=== PATIENT | male | born 1965 | race Caucasian/White ===

== ENCOUNTER 2018-06-18 07:49 | Day surgery (SDC) | payer MEDICARE, OTHER ==
[~2018-06-18] VITALS: Ht 162.6 cm; Wt 77.7 kg
[~2018-06-18 07:49] MED LIST: INSLAN SQ; INSU100V SQ; MEMA5 PO
[2018-06-18] MEDS ORDERED: NITROGLYCERIN 400 MCG/SUBLINGUAL SPRAY 4.9 GM BOTTLE SL ONE (08:20)
[2018-06-18] MEDS ORDERED: METOPROLOL TARTRATE 5 MG/5 ML VIAL ONE (08:21)
[2018-06-18] MEDS ORDERED: IOVERSOL 350 MG/ML 150 ML VIAL ONE (08:49)
[2018-06-18] MEDS ORDERED: SODIUM CHLORIDE 0.9% 100 ML ONE (08:49)
[2018-06-18 09:02] LABS: ANION GAP 9 mmol/L (8-16); CALCIUM, TOTAL 8.7 mg/dL (8.8-10.5); CARBON DIOXIDE 24 mmol/L (22-29); CHLORIDE 104 mmol/L (98-107); CREATININE 1.18 mg/dL (0.60-1.30); GLOMERULAR FILTR. RATE CALC > 60 mL/min (>60); GLUCOSE,RANDOM 311 mg/dL (70-110); POTASSIUM 4.5 mmol/L (3.5-5.1); SODIUM SERUM 137 mmol/L (136-145); UREA NITROGEN, BLOOD 21 mg/dL (7-18)
[2018-06-18] MEDS ORDERED: ONDA4 PO (09:04)
[2018-06-18] MEDS ORDERED: ISOS60TA4 PO (09:04)
[2018-06-18] MEDS ORDERED: FLUO-191 PO (09:04)
[2018-06-18] MEDS ORDERED: RANI150T7 PO (09:04)
[2018-06-18] MEDS ORDERED: MECL12.585 PO (09:04)
[2018-06-18] MEDS ORDERED: NITR0.4T50 SL (09:04)
[2018-06-18] MEDS ORDERED: SIMV-260 PO (09:04)
[2018-06-18] MEDS ORDERED: METO-296 PO (09:04)
[2018-06-18] MEDS ORDERED: CARV25 PO (09:07)
[2018-06-18] MEDS ORDERED: THIA100T67 PO (09:07)
[2018-06-18] MEDS ORDERED: SAXA2.5T PO (09:07)
[2018-06-18] MEDS ORDERED: CYAN250014 PO (09:07)
[2018-06-18] MEDS ORDERED: SENN-176 PO (09:09)
[2018-06-18] MEDS ORDERED: PRED1TAB PO (09:09)
[2018-06-18] MEDS ORDERED: GABA-529 PO (09:09)
[2018-06-18] MEDS ORDERED: AZAT50TA35 PO (09:12)
[2018-06-18] MEDS ORDERED: ASPI-1182 PO (09:12)
[2018-06-18] MEDS ORDERED: TACR1 PO (09:12)
[2018-06-18] MEDS ORDERED: VITAD1000 PO (09:12)
[2018-06-18] MEDS ORDERED: LIFI1DRO OU (09:15)
[2018-06-18] MEDS ORDERED: LATA5DRO OU (09:15)
[2018-06-18] MEDS ORDERED: TIMO10DR28 OU (09:15)
[2018-06-18] MEDS ORDERED: METOPROLOL TARTRATE 5 MG/5 ML VIAL IVP ONE ×3 (10:15→10:25)
[2018-06-18] MEDS ORDERED: METOPROLOL TARTRATE 50 MG TABLET PO ONE (10:15)
== END 2018-06-18 11:40 | disposition home or self-care (01) ==
LOC: SURGERY 07:49 → EDSTATUS 10:00 → SURGERY 11:40
PROVIDERS: ATTEND Internal Medicine Cardiovascular Disease
DX: I20.8 Other forms of angina pectoris (principal); Z53.8 Procedure and treatment not carried out for other reasons; E78.00 Pure hypercholesterolemia, unspecified; I13.10 Hypertensive heart and chronic kidney disease without heart failure, with stage 1 through stage 4 chronic kidney disease, or unspecified chronic kidney disease; E11.22 Type 2 diabetes mellitus with diabetic chronic kidney disease; N18.9 Chronic kidney disease, unspecified; I65.29 Occlusion and stenosis of unspecified carotid artery; Z86.73 Personal history of transient ischemic attack (TIA), and cerebral infarction without residual deficits; F10.21 Alcohol dependence, in remission; Z94.0 Kidney transplant status; Z79.82 Long term (current) use of aspirin; Z86.2 Personal history of diseases of the blood and blood-forming organs and certain disorders involving the immune mechanism; Z79.84 Long term (current) use of oral hypoglycemic drugs; Z79.891 Long term (current) use of opiate analgesic; Z79.4 Long term (current) use of insulin; Z87.891 Personal history of nicotine dependence; Z90.49 Acquired absence of other specified parts of digestive tract; Z79.899 Other long term (current) drug therapy; Z98.890 Other specified postprocedural states
CPT/HCPCS: 36415; 80048; 93005; J7050; Q9967; J3490

== ENCOUNTER 2018-11-05 08:04 | Day surgery (SDC) | payer MEDICARE, OTHER ==
[~2018-11-05] VITALS: Ht 165.1 cm; Wt 84.0 kg
[~2018-11-05 08:04] MED LIST changes: +0.9% SODIUM CHLORIDE 10 ML SYRINGE IVP PRN; +ASPI-1182 PO; +AZAT50TA35 PO; +CARV25 PO; +CYAN250014 PO; +FLUO-191 PO; +GABA-529 PO; +ISOS60TA4 PO; +LATA5DRO OU; +LIFI1DRO OU; +MECL12.585 PO; +METO-296 PO; +NITR0.4T50 SL; +ONDA4 PO; +PRED1TAB PO; +RANI150T7 PO; +SAXA2.5T PO; +SENN-176 PO; +SIMV-260 PO; +TACR1 PO; +THIA100T67 PO; +TIMO10DR28 OU; +VITAD1000 PO
[2018-11-05] MEDS ORDERED: METOPROLOL TARTRATE 50 MG TABLET PO ONE (08:45)
[2018-11-05] MEDS ORDERED: METOPROLOL TARTRATE 50 MG TABLET ONE (08:49)
[2018-11-05 09:27] LABS: ANION GAP 11 mmol/L (8-16); CARBON DIOXIDE 26 mmol/L (22-29); CHLORIDE 104 mmol/L (98-107); CREATININE 0.94 mg/dL (0.60-1.30); GLOMERULAR FILTR. RATE CALC > 60 mL/min (>60); GLUCOSE,RANDOM 83 mg/dL (70-110); POTASSIUM 3.7 mmol/L (3.5-5.1); SODIUM SERUM 141 mmol/L (136-145); UREA NITROGEN, BLOOD 16 mg/dL (7-18)
[2018-11-05] MEDS ORDERED: SAXA2.5T PO (09:44)
[2018-11-05] MEDS ORDERED: AMLO-512 PO (09:44)
[2018-11-05] MEDS ORDERED: RANO500T3 PO (09:44)
[2018-11-05] MEDS ORDERED: OMEP20 PO (09:44)
[2018-11-05] MEDS ORDERED: METOPROLOL TARTRATE 5 MG/5 ML VIAL IVP ONE ×2 (09:45→10:15)
[2018-11-05] MEDS ORDERED: METOPROLOL TARTRATE 5 MG/5 ML VIAL ONE ×3 (09:50→10:19)
== END 2018-11-05 10:55 | disposition home or self-care (01) ==
LOC: SURGERY 08:04 → EDSTATUS 10:00 → SURGERY 10:55
PROVIDERS: ATTEND Internal Medicine Cardiovascular Disease
DX: R94.39 Abnormal result of other cardiovascular function study (principal); Z53.8 Procedure and treatment not carried out for other reasons
CPT/HCPCS: 36415; 80048; 93005; J3490

== ENCOUNTER 2020-08-03 07:12 | Day surgery (SDC) | payer MEDICARE, MEDICAID ==
[2020-08-02 11:02] LABS: COVID AG,FIA SOURCE NASOPHARYNGEAL
[~2020-08-03] VITALS: Ht 165.1 cm; Wt 82.7 kg
[~2020-08-03 07:12] MED LIST changes: -0.9% SODIUM CHLORIDE 10 ML SYRINGE IVP PRN; +ASPI-1111 PO; -ASPI-1182 PO; +AZAT50TA21 PO; -AZAT50TA35 PO; +CHOL100018 PO; -CYAN250014 PO; +FAMO20 PO; +FENO48TA20 PO; -FLUO-191 PO; +GABA-1216 PO; -GABA-529 PO; -LATA5DRO OU; -LIFI1DRO OU; -MECL12.585 PO; -MEMA5 PO; +OMEP20 PO; +ONDA-104 PO; -ONDA4 PO; -PRED1TAB PO; +PRED5 PO; -RANI150T7 PO; +RANO500T3 PO; -SENN-176 PO; +SENN-277 PO; +SODIUM CHLORIDE 0.9% 1,000 ML IV ONE; +SODIUM CHLORIDE 0.9% 1,000 ML ONE; -TACR1 PO; +TACR1CAP6 PO; -THIA100T67 PO; +TICA90TA PO; -TIMO10DR28 OU; -VITAD1000 PO
[2020-08-03 08:09] LABS: BASOPHILS % (AUTO) 0.9 % (0.0-2.0); EOSINOPHILS % (AUTO) 3.2 % (1.0-6.0); HEMATOCRIT 42.4 % (41-53); HEMOGLOBIN 14.3 g/dL (13.5-17.5); LYMPHOCYTES # (AUTO) 1.1 K/uL (1.0-4.8); LYMPHOCYTES % (AUTO) 21.2 % (22.0-44.0); MEAN CORPUSCULAR HEMOGLOBIN 30.3 pg (26.0-34.0); MEAN CORPUSCULAR HGB CONC 33.8 G/dL (31.0-37.0); MEAN CORPUSCULAR VOLUME 90 fL (80-100); MONOCYTES # (AUTO) 0.4 K/uL (0.1-1.0); MONOCYTES % (AUTO) 8.1 % (2.0-9.0); NEUTROPHILS # (AUTO) 3.3 K/uL (1.8-7.7); NEUTROPHILS % (AUTO) 66.6 % (40.0-70.0); PLATELET COUNT (AUTO) 171 K/uL (150-450); RED BLOOD CELL COUNT(AUTO) 4.72 MIL/uL (4.50-5.90); RED CELL DISTRIBUTION WIDTH 13.8 % (11.5-14.5)
[2020-08-03 08:23] LABS: ANION GAP 13 mmol/L (8-16); CALCIUM, TOTAL 8.6 mg/dL (8.8-10.5); CARBON DIOXIDE 21 mmol/L (22-29); CHLORIDE 105 mmol/L (98-107); CREATININE 1.19 mg/dL (0.60-1.30); GLOMERULAR FILTR. RATE CALC > 60 mL/min (>60); GLUCOSE,RANDOM 222 mg/dL (70-110); POTASSIUM 3.9 mmol/L (3.5-5.1); SODIUM SERUM 139 mmol/L (136-145); UREA NITROGEN, BLOOD 17 mg/dL (7-18)
[2020-08-03 08:24] LABS: INR 0.9 (0.9-1.1)
[2020-08-03 08:28] LABS: ALANINE AMINOTRANSFERASE 29 U/L (12-78); ALBUMIN 3.6 g/dL (3.4-5.0); ALKALINE PHOSPHATASE 65 U/L (46-116); ASPARTATE AMINOTRANSFERASE 22 U/L (15-37); BILIRUBIN,TOTAL 0.7 mg/dL (0.1-1.0); TOTAL PROTEIN, SERUM 7.6 g/dL (6.4-8.2)
[2020-08-03] MEDS ORDERED: NITROGLYCERIN 50 MG/D5% WATER 250 ML ONE (08:43)
[2020-08-03] MEDS ORDERED: IOHEXOL 300 MG/ML 50 ML VIAL ONE (08:43)
[2020-08-03] MEDS ORDERED: VERAPAMIL HCL 2.5 MG/ML 2 ML VIAL ONE (08:43)
[2020-08-03] MEDS ORDERED: SODIUM BICARBONATE 50 MEQ/50 ML VIAL ONE (08:43)
[2020-08-03] MEDS ORDERED: LIDOCAINE/PF 1% 30 ML VIAL ONE (08:43)
[2020-08-03] MEDS ORDERED: IOHEXOL 300 MG/ML 150 ML VIAL ONE (08:44)
[2020-08-03] MEDS ORDERED: HEPARIN SODIUM 1000 UNITS/NS 1,000 ML ONE (08:44)
[2020-08-03 08:53] VITALS: BP 173/90
[2020-08-03] MEDS ORDERED: FentaNYL CITRATE PF 100 MCG/2 ML VIAL ONE (09:09)
[2020-08-03] MEDS ORDERED: MIDAZOLAM HCL 2 MG/2 ML VIAL ONE (09:09)
[2020-08-03] MEDS ORDERED: TICAGRELOR 90 MG TABLET ONE (09:28)
[2020-08-03] MEDS ORDERED: ASPIRIN 81 MG CHEWABLE TABLET ONE (09:28)
[2020-08-03] MEDS ORDERED: LIDOCAINE 1% 30 ML/SOD BICARB 8.4% 4 ML SQ ONE (09:30)
[2020-08-03] MEDS ORDERED: ASPIRIN 81 MG CHEWABLE TABLET PO ONE (09:30)
[2020-08-03] MEDS ORDERED: HEPARIN SODIUM 2,000 UNITS in HEPARIN SODIUM 1000 UNITS/NS 1,000 ML IARTER ONE (09:30)
[2020-08-03] MEDS ORDERED: TICAGRELOR 90 MG TABLET PO ONE (09:30)
[2020-08-03] MEDS ORDERED: IOHEXOL 300 MG/ML 150 ML VIAL IARTER ONE (09:30)
[2020-08-03] MEDS ORDERED: HEPARIN SODIUM,PORCINE 5,000 UNITS/ML VIAL IVP ONE (09:30)
[2020-08-03] MEDS ORDERED: IOHEXOL 300 MG/ML 50 ML VIAL IARTER ONE (09:30)
[2020-08-03] MEDS ORDERED: IOHEXOL 300 MG/ML 100 ML VIAL ONE (09:37)
[2020-08-03] MEDS ORDERED: NITROGLYCERIN/D5W 50 MG/250 ML IV BOTTLE ICOR ONE (10:00)
[2020-08-03] MEDS ORDERED: VERAPAMIL HCL 2.5 MG/ML 2 ML VIAL ICOR ONE (10:00)
[2020-08-03] MEDS ORDERED: SODIUM CHLORIDE 0.9% 1,000 ML IV ONE (10:15)
[2020-08-03] MEDS ORDERED: HYDROCODONE/ACETAMINOPHEN 5-325 MG TABLET PO PRN (10:15)
[2020-08-03] MEDS ORDERED: ACETAMINOPHEN 325 MG TABLET PO PRN (10:15)
== END 2020-08-03 16:05 | disposition home or self-care (01) ==
LOC: CATHLAB 07:12
PROVIDERS: ATTEND Internal Medicine Cardiovascular Disease
DX: I25.10 Atherosclerotic heart disease of native coronary artery without angina pectoris (principal); E11.9 Type 2 diabetes mellitus without complications; I10 Essential (primary) hypertension; Z79.82 Long term (current) use of aspirin; Z90.49 Acquired absence of other specified parts of digestive tract; Z98.890 Other specified postprocedural states; Z95.5 Presence of coronary angioplasty implant and graft; Z87.891 Personal history of nicotine dependence; E78.00 Pure hypercholesterolemia, unspecified; Z86.73 Personal history of transient ischemic attack (TIA), and cerebral infarction without residual deficits; D64.9 Anemia, unspecified; Z88.8 Allergy status to other drugs, medicaments and biological substances
CPT/HCPCS: 36415; 80053; 85025; 85610; 85730; 87426; 93005; 93454; C1769; C1874; C1887; C9600; C9803; J1644 ×2; J3490 ×4; J7030; Q9967 ×3; 92920; 92928; J2250; J3010